=== PATIENT | male | born 1930 | race African-American/Black ===

== ENCOUNTER 2018-11-07 15:46 | Inpatient (IN) | payer MEDICARE, OTHER ==
[~2018-11-07] VITALS: Ht 170.2 cm; Wt 73.6 kg
[~2018-11-07 15:46] MED LIST: AMLO10TA80 PO; FINA1TAB18 PO; METO25TA6 PO; TAMS-11 PO
[2018-11-07] MEDS ORDERED: ACETAMINOPHEN 325MG TABLET PO ONE (17:00)
[2018-11-07 17:08] LABS: BASOPHILS % 0.1 % (0.0-2.0); HEMATOCRIT. 35.7 % (42.0-52.0); HEMOGLOBIN. 11.1 g/dL (14.0-18.0); LYMPHOCYTES % 12.9 % (20.0-50.0); MEAN CORPUSCULAR HEMOGLOBIN 23.5 pg (28.0-32.0); MEAN CORPUSCULAR VOLUME 75.7 fL (80.0-94.0); MONOCYTES % 4.1 % (2.0-8.0); NEUTROPHILS % 82.9 % (40.0-76.0); RED BLOOD CELL COUNT 4.72 mill/uL (4.7-6.1); RED CELL DISTRIBUTION WIDTH 22.8 % (11.6-14.6)
[2018-11-07 17:17] LABS: INR 1.5; PROTHROMBIN TIME 15.2 sec (9.1-11.1)
[2018-11-07 17:18] LABS: CHLORIDE 106 mEq/L (98-107)
[2018-11-07 17:27] LABS: PLATELET 73 x1000/uL (130-400)
[2018-11-07 17:28] LABS: MEAN PLATELET VOLUME 9.4 fl (7.4-10.4); PLATELET ESTIMATE DECREASED
[2018-11-07] MEDS ORDERED: ENOXAPARIN 60MG/0.6ML SYR SUBCUT ONE (17:30)
[2018-11-07] MEDS ORDERED: CEFTRIAXONE 1 G PREMIX 50 ML IV ONE (18:00)
[2018-11-07] MEDS ORDERED: ACETAMINOPHEN 325MG TABLET PO PRN (18:15)
[2018-11-07] MEDS ORDERED: IOHEXOL-350 100 ML BOTTLE ONE (18:50)
[2018-11-07] MEDS ORDERED: FUROSEMIDE 40MG/4ML VIAL IVP ONE (19:15)
[2018-11-07] MEDS: AZITHROMYCIN 500 MG in DEXT 5% WATER 250 ML IV SCH ×2 (20:35→23:45)
[2018-11-07 21:25] VITALS: BP 107/63
[2018-11-07 22:00] VITALS: BP 114/67
[2018-11-07 23:00] VITALS: BP 123/65
[2018-11-07] MEDS ORDERED: IPRATROPIUM/ALBUTEROL 0.5-3(2.5)MG/3ML NEB INH PRN (23:15)
[2018-11-07] MEDS ORDERED: CLONIDINE 0.1MG TABLET PO PRN (23:15)
[2018-11-07] MEDS ORDERED: HYDROMORPHONE HCL/PF 2MG/ML CPJ IV PRN (23:15)
[2018-11-07] MEDS ORDERED: ACETAMINOPHEN 325MG TABLET PEG PRN (23:15)
[2018-11-07] MEDS ORDERED: ONDANSETRON HCL 4MG/2ML INJ IV PRN (23:15)
[2018-11-07] MEDS ORDERED: LORAZEPAM 2MG/ML CPJ IV PRN (23:15)
[2018-11-07 23:30] VITALS: BP 138/84
[2018-11-07] MEDS ORDERED: HEPARIN BOLUS PRN aPTT <36 IV (23:45)
[2018-11-07] MEDS ORDERED: HEPARIN BOLUS PRN aPTT 37-44 IV (23:45)
[2018-11-08] VITALS (39 sets, daily range): BP systolic 93–138; BP diastolic 46–79
[2018-11-08] MEDS: FUROSEMIDE 40MG/4ML VIAL IVP SCH ×3 (00:05→16:22)
[2018-11-08] MEDS ORDERED: HEPARIN 80 UNITS/KG BOLUS IV NR (01:00)
[2018-11-08] MEDS ORDERED: HEPARIN 25,000 UNITS PREMIX 500 ML IV SCH (01:00)
[2018-11-08 05:35] LABS: BASOPHILS % 0.2 % (0.0-2.0); HEMATOCRIT. 36.5 % (42.0-52.0); LYMPHOCYTES % 15.4 % (20.0-50.0); MEAN CORPUSCULAR HEMOGLOBIN 23.3 pg (28.0-32.0); MEAN CORPUSCULAR VOLUME 76.8 fL (80.0-94.0); MONOCYTES % 4.1 % (2.0-8.0); NEUTROPHILS % 80.3 % (40.0-76.0); RED BLOOD CELL COUNT 4.75 mill/uL (4.7-6.1); RED CELL DISTRIBUTION WIDTH 22.5 % (11.6-14.6)
[2018-11-08 05:49] LABS: PHOSPHORUS 4.2 mg/dL (2.5-4.9)
[2018-11-08 05:52] LABS: CREATINE KINASE MB FRACTION 155.2 ng/mL (0.5-3.6)
[2018-11-08 07:03] LABS: MEAN PLATELET VOLUME 9.4 fl (7.4-10.4); PLATELET 60 x1000/uL (130-400)
[2018-11-08] MEDS: ASPIRIN 81MG EC TABLET PO SCH (08:58)
[2018-11-08] MEDS: AMLODIPINE 2.5MG TABLET PO SCH ×2 (08:59→09:00)
[2018-11-08] MEDS ORDERED: CEFTRIAXONE 1 G PREMIX 50 ML IV SCH (11:30)
[2018-11-08 13:10] LABS: CLARITY URINE TURBID (CLEAR); COLOR URINE YELLOW (YELLOW); KETONES URINE NEGATIVE (NEGATIVE); LEUKOCYTE ESTERASE URINE 3+ (NEGATIVE); NITRITE URINE NEGATIVE (NEGATIVE); OCCULT BLOOD URINE 3+ (NEGATIVE); PROTEIN URINE 2+ (NEGATIVE); SPECIFIC GRAVITY URINE 1.018 (1.005-1.030)
[2018-11-08] MEDS ORDERED: POTASSIUM CHLORIDE 20MEQ TABLET SR PO NR (13:13)
[2018-11-08 13:39] LABS: *BARBITURATES SCREEN URINE NEGATIVE (NEGATIVE)
[2018-11-08 13:40] LABS: *AMPHETAMINES SCREEN URINE NEGATIVE (NEGATIVE); *BENZODIAZEPINES SCREEN URINE NEGATIVE (NEGATIVE); *COCAINE SCREEN URINE NEGATIVE (NEGATIVE); METHADONE URINE SCREEN NEGATIVE (NEGATIVE); OPIATES URINE SCREEN NEGATIVE (NEGATIVE); PHENCYCLIDINE URINE SCREEN NEGATIVE (NEGATIVE)
[2018-11-08 13:41] LABS: CANNABINOID URINE SCREEN NEGATIVE (NEGATIVE)
[2018-11-08 15:29] LABS: BG BASE EXCESS 1.5 mmol/L (-2.0-2.0); BG CARBOXYHEMOGLOBIN 2.6 % (0.5-1.5); BG FRACTION INSPIRED OXYGEN 32; BG HCO3 ACT 25.2 mmol/L (22.0-26.0); BG METHEMOGLOBIN 0.3 % (0.0-1.5); BG OXYGEN SATURATION 96.9 % (92.0-98.5); BG OXYHEMOGLOBIN 94.1 % (94.0-97.0); BG PCO2 35.7 mmHg (35.0-45.0); BG PH 7.466 (7.350-7.450); BG PO2 85.5 mmHg (75.0-100.0); BG SAMPLE SITE RIGHT RADIAL; BG TOTAL HEMOGLOBIN 9.3 g/dL (12.0-18.0); BG VENT MODE NASAL CANNULA
[2018-11-08] MEDS: FAMOTIDINE 20MG/2ML VIAL IV SCH (16:22)
[2018-11-08] MEDS: IPRATROPIUM/ALBUTEROL 0.5-3(2.5)MG/3ML NEB HHN SCH ×2 (17:20→20:35)
[2018-11-08] MEDS: DILTIAZEM HCL 125 MG in DEXT 5% WATER 100 ML IV SCH (17:56)
[2018-11-08 19:19] LABS: CREATINE KINASE MB FRACTION 52.9 ng/mL (0.5-3.6)
[2018-11-08] MEDS: ATORVASTATIN CALCIUM 10MG TABLET PO SCH (21:00)
[2018-11-08 21:33] LABS: HEPATITIS B SURFACE ANTIGEN NEGATIVE
[2018-11-08 22:03] LABS: HEPATITIS A AB IGM NEGATIVE (NEGATIVE)
[2018-11-09] VITALS (52 sets, daily range): BP systolic 68–125; BP diastolic 34–91
[2018-11-09] MEDS: ACETYLCYSTEINE 100MG/ML 10% VIAL 4ML INH SCH ×3 (00:11→15:39)
[2018-11-09] MEDS: IPRATROPIUM/ALBUTEROL 0.5-3(2.5)MG/3ML NEB HHN SCH ×6 (00:11→20:26)
[2018-11-09 06:01] LABS: BASOPHILS % 0.1 % (0.0-2.0); EOSINOPHILS % 0.1 % (0.0-5.0); HEMATOCRIT. 26.2 % (42.0-52.0); HEMOGLOBIN. 8.4 g/dL (14.0-18.0); LYMPHOCYTES % 18.4 % (20.0-50.0); MEAN CORPUSCULAR HEMOGLOBIN 23.7 pg (28.0-32.0); MEAN CORPUSCULAR VOLUME 74.2 fL (80.0-94.0); MONOCYTES % 5.4 % (2.0-8.0); RED BLOOD CELL COUNT 3.53 mill/uL (4.7-6.1); RED CELL DISTRIBUTION WIDTH 21.9 % (11.6-14.6)
[2018-11-09 06:02] LABS: INR 1.5; PROTHROMBIN TIME 14.8 sec (9.1-11.1)
[2018-11-09 07:26] LABS: PLATELET 52 x1000/uL (130-400)
[2018-11-09] MEDS: ASPIRIN 81MG EC TABLET PO SCH (09:32)
[2018-11-09] MEDS: FUROSEMIDE 40MG/4ML VIAL IVP SCH ×2 (09:32→18:38)
[2018-11-09] MEDS ORDERED: FUROSEMIDE 40MG/4ML VIAL IVP NR (10:21)
[2018-11-09 11:46] LABS: BG CARBOXYHEMOGLOBIN 2.6 % (0.5-1.5); BG DEOXYHEMOGLOBIN 2.9 % (0.0-5.0); BG HCO3 ACT 28.4 mmol/L (22.0-26.0); BG METHEMOGLOBIN 0.3 % (0.0-1.5); BG OXYHEMOGLOBIN 94.2 % (94.0-97.0); BG PCO2 36.6 mmHg (35.0-45.0); BG PH 7.507 (7.350-7.450); BG PO2 85.6 mmHg (75.0-100.0); BG SAMPLE SITE RIGHT RADIAL; BG TOTAL HEMOGLOBIN 9.1 g/dL (12.0-18.0); BG VENT MODE NASAL CPAP
[2018-11-09] MEDS ORDERED: VANCOMYCIN 1250MG in DEXTROSE 5% WATER 250ML IV NR (12:00)
[2018-11-09] MEDS ORDERED: LIDOCAINE HCL 1% 20ML VIAL (Pyxis) INJ ONE (12:10)
[2018-11-09] MEDS: DILTIAZEM HCL 125 MG in DEXT 5% WATER 100 ML IV SCH (14:31)
[2018-11-09] MEDS: POTASSIUM CHLORIDE 20MEQ TABLET SR PO SCH ×2 (14:42→18:39)
[2018-11-09] MEDS: PIPERACILLIN/TAZ 2.25G PREMIX 50 ML IV SCH ×3 (14:46→23:45)
[2018-11-09] MEDS: FAMOTIDINE 20MG/2ML VIAL IV SCH (18:39)
[2018-11-09] MEDS: ATORVASTATIN CALCIUM 10MG TABLET PO SCH (21:11)
[2018-11-10] VITALS (47 sets, daily range): BP systolic 66–150; BP diastolic 30–96
[2018-11-10] MEDS: IPRATROPIUM/ALBUTEROL 0.5-3(2.5)MG/3ML NEB HHN SCH ×6 (00:15→20:20)
[2018-11-10] MEDS: ACETYLCYSTEINE 100MG/ML 10% VIAL 4ML INH SCH ×3 (00:15→16:00)
[2018-11-10] MEDS: DILTIAZEM HCL 125 MG in DEXT 5% WATER 100 ML IV SCH (00:51)
[2018-11-10] MEDS: PIPERACILLIN/TAZ 2.25G PREMIX 50 ML IV SCH ×2 (05:26→11:36)
[2018-11-10 06:44] LABS: MEAN CORPUSCULAR HEMOGLOBIN 24.3 pg (28.0-32.0); MEAN CORPUSCULAR VOLUME 75.5 fL (80.0-94.0); RED BLOOD CELL COUNT 4.11 mill/uL (4.7-6.1); RED CELL DISTRIBUTION WIDTH 21.7 % (11.6-14.6)
[2018-11-10 06:51] LABS: INR 1.7; PROTHROMBIN TIME 16.9 sec (9.1-11.1)
[2018-11-10 07:15] LABS: CHLORIDE 105 mEq/L (98-107)
[2018-11-10 07:30] LABS: PLATELET 27 x1000/uL (130-400)
[2018-11-10] MEDS: POTASSIUM CHLORIDE 20MEQ TABLET SR PO SCH ×2 (08:39→16:57)
[2018-11-10] MEDS: FUROSEMIDE 40MG/4ML VIAL IVP SCH ×2 (08:39→16:57)
[2018-11-10] MEDS: ASPIRIN 81MG EC TABLET PO SCH (08:39)
[2018-11-10] MEDS ORDERED: VANCOMYCIN 1 G PREMIX 200 ML IV SCH (09:00)
[2018-11-10] MEDS: DILTIAZEM HCL 30MG TABLET PO SCH ×3 (11:36→23:35)
[2018-11-10 13:00] LABS: BG BASE EXCESS 2.1 mmol/L (-2.0-2.0); BG CARBOXYHEMOGLOBIN 1.3 % (0.5-1.5); BG DEOXYHEMOGLOBIN 5.6 % (0.0-5.0); BG HCO3 ACT 25.8 mmol/L (22.0-26.0); BG METHEMOGLOBIN 0.3 % (0.0-1.5); BG OXYGEN SATURATION 94.3 % (92.0-98.5); BG OXYHEMOGLOBIN 92.8 % (94.0-97.0); BG PCO2 36.5 mmHg (35.0-45.0); BG PH 7.467 (7.350-7.450); BG PO2 72.9 mmHg (75.0-100.0); BG SAMPLE SITE RIGHT BRACHIAL; BG VENT MODE NASAL CANNULA
[2018-11-10] MEDS ORDERED: AMPICILLIN XX SCH (13:15)
[2018-11-10] MEDS: AMPICILLIN 500 MG in SODIUM CHLORIDE 0.9% 50 ML IV SCH ×2 (14:15→21:25)
[2018-11-10] MEDS: FAMOTIDINE 20MG/2ML VIAL IV SCH (16:24)
[2018-11-10] MEDS: ATORVASTATIN CALCIUM 10MG TABLET PO SCH (21:25)
[2018-11-11] VITALS (45 sets, daily range): BP systolic 104–145; BP diastolic 43–105
[2018-11-11] MEDS: IPRATROPIUM/ALBUTEROL 0.5-3(2.5)MG/3ML NEB HHN SCH ×6 (00:19→20:21)
[2018-11-11] MEDS: ACETYLCYSTEINE 100MG/ML 10% VIAL 4ML INH SCH ×4 (00:19→17:37)
[2018-11-11] MEDS: AMPICILLIN 500 MG in SODIUM CHLORIDE 0.9% 50 ML IV SCH ×4 (03:18→22:44)
[2018-11-11] MEDS: DILTIAZEM HCL 30MG TABLET PO SCH (05:51)
[2018-11-11 07:08] LABS: HEMATOCRIT 30.2 % (42.0-52.0); HEMOGLOBIN 9.6 g/dL (14.0-18.0); MEAN CORPUSCULAR HEMOGLOBIN 24.6 pg (28.0-32.0); MEAN CORPUSCULAR VOLUME 77.1 fL (80.0-94.0); RED BLOOD CELL COUNT 3.92 mill/uL (4.7-6.1); RED CELL DISTRIBUTION WIDTH 21.8 % (11.6-14.6)
[2018-11-11 07:25] LABS: PLATELET 37 x1000/uL (130-400)
[2018-11-11 08:50] LABS: BG BASE EXCESS 3.2 mmol/L (-2.0-2.0); BG CARBOXYHEMOGLOBIN 2.3 % (0.5-1.5); BG DEOXYHEMOGLOBIN 5.8 % (0.0-5.0); BG FRACTION INSPIRED OXYGEN 32; BG HCO3 ACT 26.7 mmol/L (22.0-26.0); BG METHEMOGLOBIN 0.3 % (0.0-1.5); BG OXYHEMOGLOBIN 91.6 % (94.0-97.0); BG PCO2 36.2 mmHg (35.0-45.0); BG PH 7.485 (7.350-7.450); BG PO2 66.5 mmHg (75.0-100.0); BG SAMPLE SITE RIGHT RADIAL; BG TOTAL HEMOGLOBIN 9.9 g/dL (12.0-18.0); BG VENT MODE NASAL CANNULA
[2018-11-11] MEDS: FUROSEMIDE 40MG/4ML VIAL IVP SCH ×2 (09:05→17:22)
[2018-11-11] MEDS: DILTIAZEM HCL 60MG TABLET PO SCH ×2 (12:00→22:44)
[2018-11-11] MEDS: POTASSIUM CHLORIDE 20MEQ TABLET SR PO SCH ×2 (12:00→17:22)
[2018-11-11] MEDS: FAMOTIDINE 20MG/2ML VIAL IV SCH (16:01)
[2018-11-11] MEDS: ATORVASTATIN CALCIUM 10MG TABLET PO SCH (22:43)
[2018-11-12] VITALS (37 sets, daily range): BP systolic 54–135; BP diastolic 42–84
[2018-11-12] MEDS: IPRATROPIUM/ALBUTEROL 0.5-3(2.5)MG/3ML NEB HHN SCH ×5 (00:20→16:03)
[2018-11-12] MEDS ORDERED: FUROSEMIDE 40MG/4ML VIAL IVP NR ×2 (00:30→14:00)
[2018-11-12] MEDS: AMPICILLIN 500 MG in SODIUM CHLORIDE 0.9% 50 ML IV SCH ×3 (03:09→15:02)
[2018-11-12 05:42] LABS: HEMATOCRIT. 32.1 % (42.0-52.0); HEMOGLOBIN. 10.2 g/dL (14.0-18.0); MEAN CORPUSCULAR HEMOGLOBIN 24.8 pg (28.0-32.0); MEAN CORPUSCULAR VOLUME 78.2 fL (80.0-94.0); MEAN PLATELET VOLUME 8.8 fl (7.4-10.4); RED CELL DISTRIBUTION WIDTH 22.7 % (11.6-14.6)
[2018-11-12 06:00] LABS: PLATELET 28 x1000/uL (130-400)
[2018-11-12] MEDS: DILTIAZEM HCL 60MG TABLET PO SCH ×2 (06:26→13:07)
[2018-11-12 07:13] LABS: NUCLEATED RED BLOOD CELLS 1 /100 WBC; PLATELET ESTIMATE DECREASED
[2018-11-12] MEDS: ACETYLCYSTEINE 100MG/ML 10% VIAL 4ML INH SCH ×2 (08:31→16:03)
[2018-11-12] MEDS: POTASSIUM CHLORIDE 20MEQ TABLET SR PO SCH (08:53)
[2018-11-12] MEDS: FUROSEMIDE 40MG/4ML VIAL IVP SCH ×2 (08:58→17:00)
[2018-11-12] MEDS ORDERED: DILTIAZEM HCL 5MG/ML 5ML VIAL IV NR (10:45)
[2018-11-12] MEDS ORDERED: DILTIAZEM HCL 125 MG in DEXT 5% WATER 100 ML IV SCH (12:00)
[2018-11-12 12:30] LABS: BG BASE EXCESS -2.2 mmol/L (-2.0-2.0); BG CARBOXYHEMOGLOBIN 1.4 % (0.5-1.5); BG METHEMOGLOBIN 0.3 % (0.0-1.5); BG OXYGEN SATURATION 91.9 % (92.0-98.5); BG OXYHEMOGLOBIN 90.3 % (94.0-97.0); BG PCO2 35.6 mmHg (35.0-45.0); BG PH 7.409 (7.350-7.450); BG PO2 63.8 mmHg (75.0-100.0); BG SAMPLE SITE RIGHT RADIAL; BG VENT MODE MASK - VENTI
[2018-11-12] MEDS ORDERED: HYDROMORPHONE HCL/PF 2MG/ML CPJ IV PRN (12:30)
[2018-11-12] MEDS ORDERED: ASPIRIN 81MG TABLET PO SCH (13:15)
[2018-11-12] MEDS: FAMOTIDINE 20MG/2ML VIAL IV SCH (15:02)
[2018-11-12] MEDS ORDERED: LORAZEPAM 2MG/ML CPJ IV PRN (15:15)
[2018-11-12] MEDS ORDERED: DEXTROSE 50% WATER 50ML SYRINGE IV ONE ×2 (16:45→19:00)
[2018-11-12] MEDS ORDERED: PHENYLEPHRINE 40 MG in DEXT 5% WATER 246 ML IV PRN (17:00)
[2018-11-12 17:02] LABS: BG BASE EXCESS -12.5 mmol/L (-2.0-2.0); BG CARBOXYHEMOGLOBIN 1.4 % (0.5-1.5); BG DEOXYHEMOGLOBIN 3.4 % (0.0-5.0); BG FRACTION INSPIRED OXYGEN 100; BG HCO3 ACT 16.8 mmol/L (22.0-26.0); BG METHEMOGLOBIN 0.3 % (0.0-1.5); BG OXYGEN SATURATION 96.5 % (92.0-98.5); BG OXYHEMOGLOBIN 94.9 % (94.0-97.0); BG PCO2 56.6 mmHg (35.0-45.0); BG PO2 130.4 mmHg (75.0-100.0); BG SAMPLE SITE RIGHT FEMORAL; BG TOTAL HEMOGLOBIN 8.7 g/dL (12.0-18.0); BG VENT MODE CPR
[2018-11-12] MEDS ORDERED: NOREPINEPHRINE 16 MG in DEXT 5% WATER 234 ML IV PRN (17:30)
[2018-11-12 17:59] LABS: BASOPHILS % 0.2 % (0.0-2.0); EOSINOPHILS % 0.6 % (0.0-5.0); HEMATOCRIT. 27.9 % (42.0-52.0); HEMOGLOBIN. 8.5 g/dL (14.0-18.0); LYMPHOCYTES % 23.8 % (20.0-50.0); MEAN CORPUSCULAR HEMOGLOBIN 24.7 pg (28.0-32.0); MEAN PLATELET VOLUME 7.4 fl (7.4-10.4); MONOCYTES % 4.2 % (2.0-8.0); NEUTROPHILS % 71.2 % (40.0-76.0); RED BLOOD CELL COUNT 3.45 mill/uL (4.7-6.1); RED CELL DISTRIBUTION WIDTH 22.5 % (11.6-14.6)
[2018-11-12 18:02] LABS: PLATELET 49 x1000/uL (130-400)
[2018-11-12 18:04] LABS: CHLORIDE 105 mEq/L (98-107)
[2018-11-12] MEDS ORDERED: VASOPRESSIN 10 UNIT in SODIUM CHLORIDE 0.9% 99.5 ML IV PRN (18:15)
[2018-11-12 18:20] LABS: PLATELET ESTIMATE MARKEDLY DECREASED
[2018-11-12] MEDS ORDERED: SODIUM BICARBONATE 150 MEQ in DEXT 5%/0.45% NACL 1000ML 1,000 ML IV SCH ×6 (18:30)
[2018-11-12 18:49] LABS: PHOSPHORUS 8.6 mg/dL (2.5-4.9)
[2018-11-12] MEDS ORDERED: ATROPINE SULFATE 1MG/10ML SYR ONE (19:00)
[2018-11-12] MEDS ORDERED: CALCIUM CHLORIDE 1GM/10ML SYR IV ONE (19:00)
[2018-11-12] MEDS ORDERED: SODIUM BICARBONATE 8.4% MEQ/ML 50ML VIAL IV ONE (19:00)
[2018-11-12] MEDS ORDERED: EPINEPHRINE 0.1MG/ML (1:10,000) 10ML SYR ONE (19:00)
[2018-11-12] MEDS ORDERED: SODIUM BICARBONATE 8.4% 1 MEQ/ML 50ML SYR IV NR (19:15)
[2018-11-12] MEDS ORDERED: INSULIN REGULAR (HUMULIN R) 300UNITS/3ML IV NR (19:15)
[2018-11-12] MEDS ORDERED: SODIUM POLYSTYRENE SULFONATE 15 G/60 ML BOT PO NR (19:15)
[2018-11-12] MEDS ORDERED: DEXTROSE 50% WATER 50ML SYRINGE IV NR (19:15)
[2018-11-12] MEDS ORDERED: CALCIUM GLUCONATE 1,000 MG in DEXT 5% WATER 90 ML IV NR (20:00)
[2018-11-12] MEDS ORDERED: IPRATROPIUM/ALBUTEROL 0.5-3(2.5)MG/3ML NEB HHN SCH (20:00)
[2018-11-12] MEDS ORDERED: METHYLPREDNISOLONE SOD SUCC 40 MG/ML VIAL IV SCH (21:00)
== END 2018-11-12 21:00 | disposition expired | DRG 871 ==
LOC: ER 15:46 → CVICU 18:20 → EDBEDREQTM 18:20 → EDBEDREQ 18:20 → EDBEDREQSVC 18:21 → EDBEDREQ 18:21 → ENRESERV 20:24
PROVIDERS: ADMIT Internal Medicine; ATTEND Internal Medicine
PROC: 02HV33Z Insertion of Infusion Device into Superior Vena Cava, Percutaneous Approach (ICD-10-PCS; 2018-11-09)
PROC: B548ZZA Ultrasonography of Superior Vena Cava, Guidance (ICD-10-PCS; 2018-11-09)
PROC: 30233N1 Transfusion of Nonautologous Red Blood Cells into Peripheral Vein, Percutaneous Approach (ICD-10-PCS; 2018-11-09)
PROC: 30233R1 Transfusion of Nonautologous Platelets into Peripheral Vein, Percutaneous Approach (ICD-10-PCS; 2018-11-10)
PROC: 0BH18EZ Insertion of Endotracheal Airway into Trachea, Via Natural or Artificial Opening Endoscopic (ICD-10-PCS; principal; 2018-11-12)
PROC: 5A1935Z Respiratory Ventilation, Less than 24 Consecutive Hours (ICD-10-PCS; 2018-11-12)
PROC: 5A12012 Performance of Cardiac Output, Single, Manual (ICD-10-PCS; 2018-11-12)
DX: A41.9 Sepsis, unspecified organism (principal); E43 Unspecified severe protein-calorie malnutrition; I21.4 Non-ST elevation (NSTEMI) myocardial infarction; I26.99 Other pulmonary embolism without acute cor pulmonale; J18.9 Pneumonia, unspecified organism; G93.41 Metabolic encephalopathy; I50.43 Acute on chronic combined systolic (congestive) and diastolic (congestive) heart failure; K72.00 Acute and subacute hepatic failure without coma; I82.403 Acute embolism and thrombosis of unspecified deep veins of lower extremity, bilateral; N39.0 Urinary tract infection, site not specified; D61.818 Other pancytopenia; E87.2 Acidosis; J44.0 Chronic obstructive pulmonary disease with (acute) lower respiratory infection; M62.82 Rhabdomyolysis; N17.9 Acute kidney failure, unspecified; D68.9 Coagulation defect, unspecified; C22.9 Malignant neoplasm of liver, not specified as primary or secondary; I13.0 Hypertensive heart and chronic kidney disease with heart failure and stage 1 through stage 4 chronic kidney disease, or unspecified chronic kidney disease; B96.20 Unspecified Escherichia coli [E. coli] as the cause of diseases classified elsewhere; D50.9 Iron deficiency anemia, unspecified; E87.5 Hyperkalemia; F03.90 Unspecified dementia, unspecified severity, without behavioral disturbance, psychotic disturbance, mood disturbance, and anxiety; F17.210 Nicotine dependence, cigarettes, uncomplicated; H54.8 Legal blindness, as defined in USA; I25.10 Atherosclerotic heart disease of native coronary artery without angina pectoris; I27.21 Secondary pulmonary arterial hypertension; I48.91 Unspecified atrial fibrillation; N18.9 Chronic kidney disease, unspecified; M16.12 Unilateral primary osteoarthritis, left hip; N40.0 Benign prostatic hyperplasia without lower urinary tract symptoms; Z51.5 Encounter for palliative care; Z53.8 Procedure and treatment not carried out for other reasons; Z60.2 Problems related to living alone; E87.6 Hypokalemia; I46.9 Cardiac arrest, cause unspecified; N14.1 Nephropathy induced by other drugs, medicaments and biological substances; T50.8X5A Adverse effect of diagnostic agents, initial encounter; Z85.038 Personal history of other malignant neoplasm of large intestine; Z86.73 Personal history of transient ischemic attack (TIA), and cerebral infarction without residual deficits; Z79.899 Other long term (current) drug therapy; Z86.2 Personal history of diseases of the blood and blood-forming organs and certain disorders involving the immune mechanism; Z90.49 Acquired absence of other specified parts of digestive tract; Z78.1 Physical restraint status; Y92.89 Other specified places as the place of occurrence of the external cause; Z91.010 Allergy to peanuts
CPT/HCPCS: 36415; 36569; 36600; 71045; 71275; 76700; 76937; 80048; 80076; 80305; 82105; 82140; 82270; 82375; 82378; 82550; 82553; 82805; 82962; 83605; 83735; 83880; 84100; 84153; 84484; 85027; 85049; 86705; 86709; 86803; 86850; 86900; 86920; 86945; 87070; 87077; 87186; 87340; 87804; 92610; 92950; 93005; 93306; 93970; 94002; 94640; 96365; 96372; 96375; 99291; A6261; C1725; J0290; J0456; J0461; J0610; J0696; J1170; J1650; J1940; J2543; J3370; J3490; J7040; J7050; J7060; J7608; J7620; P9016; P9034; Q9967; A4315; G0103